=== PATIENT | male | born 1950 | race Caucasian/White ===

== ENCOUNTER 2018-06-20 11:55 | Outpatient (CLI) | payer MEDICARE ==
--- NOTE | 2018-06-20 13:50 | MRI ---
MRI LUMBAR SPINE: HISTORY: Spondylolisthesis lumbosacral with back pain. FINDINGS: Multiplanar, multisequence noncontrast-enhanced MRI images lumbar spine performed. RADIOGRPAHIC FINDINGS: Interosseous hemangioma is seen involving the L1 and L4 levels. The L4 lesion is so large that it in volves essentially the entire L4 vertebral body. T12-L1: Unremarkable. L1-2: Disk desiccation is seen. The central canal is patent. The neural foramen are patent. L2-3: Disk desiccation is seen. There is a broad-based disk bulge with bilateral facet hypertrophy. This results in mild central and lateral recess stenosis. Moderate left and mild right-sided neura l foraminal narrowing is seen predominantly due to facet hypertrophy. L3-4: Disk desiccation is seen. There is a broad-based disk bulge with bilateral facet and ligament um flavum hypertrophy resulting in mild central and lateral recess stenosis. Mild to moderate bilate ral neural foraminal narrowing is seen due to facet hypertrophy. L4-5: Disk desiccation is seen. There is a broad-based disk bulge. No significant degree of centra l stenosis is seen. Moderate left and mild right-sided neural foraminal narrowing is seen due to the broad-based disk bulge and mild facet hypertrophy. L5-S1: There is minimal anterolisthesis of L5 on S1 measuring approximately 3.4 mm. There is an are a of signal abnormality in the left L5 pars region compatible with left pars interarticularis defect. The right L5 pars appears to be intact. No significant degree of central stenosis is seen. The ne ural foramen are patent. IMPRESSION: Left-sided L5 pars defect. There is minimal anterolisthesis of L5 on S1. POS: [facility]
--- NOTE | 2018-06-21 07:49 | RAD ---
Lumbar spine 4 views: 06/20/2018 COMPARISON: None HISTORY: Spondylolisthesis of the lumbar spine, low back pain FINDINGS: Lumbar pedicles appear intact on frontal imaging. There is lateral osteophyte formation at multiple levels within the upper lumbar spine. On the neutral lateral examination there is mild anterolisthesis at the lumbosacral junction measurin g 5 mm. Assuming 5 lumbar type vertebral bodies, there is multilevel disc space narrowing with degenerative endplate change and anterior osteophyte formation at T12-L1, L1-2, and L2-3. On flexion imaging there is anterolisthesis at the lumbosacral junction measuring approximately 6 mm. On the extension imaging this anterolisthesis at the lumbosacral junction measures approximately 4 mm. IMPRESSION: Multilevel lumbar spine degenerative change.
== END 2018-06-20 11:56 | disposition home or self-care (01) ==
LOC: BICMRI 11:55
PROVIDERS: ATTEND Nurse Practitioner Family
DX: M43.17 Spondylolisthesis, lumbosacral region (principal); M47.816 Spondylosis without myelopathy or radiculopathy, lumbar region
CPT/HCPCS: 72110; 72148

== ENCOUNTER 2018-08-27 04:26 | Inpatient (IN) | payer MEDICARE ==
[2018-08-27 05:08] LABS: #Basophils 0.1 thou/uL (0.0-0.2); #Eosinphils 0.3 thou/uL (0.0-0.7); #Lymphocytes 1.3 thou/uL (1.20-3.40); #Monocytes 0.5 thou/uL (0.11-0.59); #Neutrophils 5.4 thou/uL (1.40-6.50); %Basophils 0.9 % (0.0-1.0); %Lymphocytes 16.7 % (21.0-51.0); %Monocytes 6.8 % (0.0-10.0); %Neutrophils 71.6 % (42.0-75.0); Hemoglobin 13.1 g/dL (14.0-18.0); Mean Corpuscular Hemoglobin 30.4 pg (27.0-31.0); Mean Platelet Volume 7.3 fL (7.4-10.4); Platelet Count 203 thou/uL (130-400); RBC Distribution Width 14.3 % (11.5-14.5); White Blood Cell (WBC) Count 7.5 thou/uL (4.8-10.8)
[2018-08-27 05:24] LABS: ALT (SGPT) Less than 7 U/L (8-55); AST (SGOT) 8 U/L (5-34); Albumin 4.1 g/dL (3.4-4.8); Alkaline Phosphatase 66 U/L (40-150); Anion Gap 11 mmol/L (10-20); BUN (Urea Nitrogen) 23 mg/dL (8.4-25.7); Bilirubin, Total 0.8 mg/dL (0.2-1.2); Calc. Creatinine Clearance 0 mL/min (70-130); Carbon Dioxide 27 mmol/L (23-31); Chloride 105 mmol/L (98-107); Estimated GFR-MDRD 41; Globulin 3.4 g/dL (2.4-3.5); Glucose 145 mg/dL (80-115); Potassium 3.8 mmol/L (3.5-5.1); Protein, Total 7.5 g/dL (5.8-8.1); Sodium 139 mmol/L (136-145)
[2018-08-27] MEDS ORDERED: Ondansetron ODT 4 MG TAB PO PRN (05:54)
[2018-08-27] MEDS ORDERED: Calcium Carbonate 500 MG ChewTAB PO PRN (05:54)
[2018-08-27] MEDS ORDERED: Acetaminophen 325 MG TAB PO PRN (05:54)
[2018-08-27] MEDS ORDERED: Senokot S 8.6-50 MG TAB PO PRN (05:54)
--- NOTE | 2018-08-27 05:59 | PDOC.FPRHP ---
- History of Present Illness Chief Complaint: Accidental Hydralazine Overdose History of Present Illness: Mr. Gutierrez is a pleasant 68yoM who presents to the ER this morning after accidentally taking 12-13 hydralazine 100mg tablets this morning. He states that his usually sets his daily medications out for him and that this morning around 3:15am when he woke to take them he just grabbed the bottle on the cabinet and swallowed the whole thing, not realizing that it was not his daily mix of medications. Shortly after taking the medication he realized his mistake and they immediately came to the emergency department. He denies nausea, vomiting, light headedness, syncope, or any other symptoms. He has a PMH of stroke with left sided weakness, CKD, gout, back pain, primary hyperparathyroidism. - Allergies/Adverse Reactions Allergies Allergy/AdvReac Type Severity Reaction Status Date / Time No Known Drug Allergies Allergy Verified 02/16/14 23:10 - Home Medications Medication Instructions Recorded Confirmed Type Amlodipine [Norvasc] 10 mg PO DAILY #0 tab 03/20/14 08/27/18 Rx Carvedilol [Coreg] 3.125 mg PO BID-WM #0 tab 03/20/14 08/27/18 Rx Pantoprazole [Protonix] 40 mg PO DAILY #0 tab 03/20/14 08/27/18 Rx hydrALAZINE [Apresoline] 100 mg PO 0600,1400,2200 #0 tab 03/20/14 08/27/18 Rx Doxazosin Mesylate 1 mg PO DAILY 08/21/14 08/27/18 History Celecoxib 200 mg PO BID #0 capsule 08/22/14 08/27/18 Rx - History PMHx: Stroke Chronic back pain Gout Hyperparathyroidism HTN CKD PSHx: None FHx: Non-contributory Social: Uses chewing tobacco. Non-drinker. - Review of Systems General: denies: fever/chills, weight/appetite/sleep changes, night sweats Eyes: denies: eye pain, vision changes ENT: denies: nasal congestion Respiratory: denies: cough, congestion Cardiovascular: denies: chest pain, palpitation, edema Gastrointestinal: denies: nausea, vomiting Skin: denies: rashes Musculoskeletal: denies: pain Neurological: denies: numbness, syncope, seizure, weakness (other than history of weakness from stroke) - Vital signs BP: [] HR: [] RR: [] Tmax: [] Pox: []% on [] Wt: [] - Physical Exam Constitutional: NAD, awake, alert and oriented HEENT: normocephalic and atraumatic Neck: supple, FROM Chest: no-tender to palpation Heart: RRR, normal S1/S2, no murmurs/rubs/gallops, pulses present, no edema Lungs: CTAB, no respiratory distress, no rales/rhonchi, no wheezing, no retractions Abdomen: soft, non-tender, bowel sounds present Neurological: no focal deficit Skin: no rash/lesions Heme/Lymphatic: no unusual bruising or bleeding Psychiatric: normal mood and affect FMR H&P: Results - Labs Result Diagrams: 08/27/18 04:54 08/27/18 04:54 Lab results: WBC 7.5 thou/uL (4.8-10.8) 08/27/18 04:54 Hgb 13.1 g/dL (14.0-18.0) L 08/27/18 04:54 Hct 40.8 % (42.0-52.0) L 08/27/18 04:54 MCV 95.0 fL (78.0-98.0) 08/27/18 04:54 Plt Count 203 thou/uL (130-400) 08/27/18 04:54 Neutrophils % 71.6 % (42.0-75.0) 08/27/18 04:54 Sodium 139 mmol/L (136-145) 08/27/18 04:54 Potassium 3.8 mmol/L (3.5-5.1) 08/27/18 04:54 Chloride 105 mmol/L (98-107) 08/27/18 04:54 Carbon Dioxide 27 mmol/L (23-31) 08/27/18 04:54 BUN 23 mg/dL (8.4-25.7) 08/27/18 04:54 Creatinine 1.67 mg/dL (0.7-1.3) H 08/27/18 04:54 Glucose 145 mg/dL (80-115) H 08/27/18 04:54 Calcium 11.0 mg/dL (7.8-10.44) H 08/27/18 04:54 Total Bilirubin 0.8 mg/dL (0.2-1.2) 08/27/18 04:54 AST 8 U/L (5-34) 08/27/18 04:54 ALT Less than 7 U/L (8-55) L 08/27/18 04:54 Alkaline Phosphatase 66 U/L (40-150) 08/27/18 04:54 Serum Total Protein 7.5 g/dL (5.8-8.1) 08/27/18 04:54 Albumin 4.1 g/dL (3.4-4.8) 08/27/18 04:54 - EKG Interpretation EKG: "12 lead EKG shows, sinus arrhythmia, 65 BPM, Conduction with complete right bundle branch block, left anterior fascicular block, bifascicular block, first degree AV block, ST segments normal, T waves normal, Ray normal" FMR H&P: A/P - Problem List (1) Accidental overdose Current Visit: Yes Status: Acute Code(s): T50.901A - POISONING BY UNSP DRUG/ MEDS/BIOL SUBST, ACCIDENTAL, INIT (2) Primary hyperparathyroidism Current Visit: Yes Status: Chronic Code(s): E21.0 - PRIMARY HYPERPARATHYROIDISM (3) Hypercalcemia Current Visit: No Status: Chronic Code(s): E83.52 - HYPERCALCEMIA (4) Chronic kidney disease, stage 3 Current Visit: No Status: Chronic (5) HTN (hypertension) Current Visit: No Status: Chronic Code(s): I10 - ESSENTIAL (PRIMARY) HYPERTENSION - Plan 1. Accidental Hydralazine Overdose (approx 1300mg) - Most recent BP was 140/85 with pulse of 68 BPM, asymptomatic. - Poison control reference number #[id number]. ([phone]) - Following poison control recommendations - monitor BP, HR, telemetry, electrolytes. If hypotensive, give fluids. Symptoms should present within 6 hours of ingestion. - Admit to [facility] for observation - Hold all home BP medications (hydralazine, amlodipine, and carvedilol) 2. Hypercalcemia 2/2 primary hyperparathyroidism - stable, at baseline 3. CKD stage III - stable, at baseline 4. Chronic normocytic anemia - stable, at baseline FMR H&P: Upper Level - Pertinent history 68 yo M here following accidental ingestion of apprx 1300 mg of hydralazine. His typically sorts his meds for him and he apparently took the wrong bottle of pills in the dark this morning. He immediately presented to the ED where he has been monitored since. Poison control was contacted who recommends monitoring BP for at least 6 hours. Patient has been hypertensive since being monitored with no hypotensive BPs. See video editing internship portion for full ROS, PE, labs, and vitals ROS General denies fever or chills HEENT denies changes in vision or dizziness CV denies palpitations Resp denies SOB or cough GI denies n/v - Pertinent findings PE General alert and oriented x4 HEENT NCAT CV RRR no murmur Resp CTA b/l Abd non tender, no distension Neuro slight L facial droop and left extremity weakness - Plan Date/Time: 08/27/18 0554 I, Nolan Urban DO, have evaluated this patient and agree with findings/plan as outlined by video editing internship resident. Pertinent changes/additions are listed here. 1. Accidental hydralazine OD - blood pressures currently stable. Monitor in IMCU - will also monitor BMP per poison control recommendation - give IVF and pressers if needed - can consider dc home this afternoon 2. HTN - hold home BP meds 3. Hx of CVA - pt is currently at baseline 4. CKD - at baseline 5. normocytic anemia - at baseline 6. Hyperparathyroidism - Ca stable and at baseline
[2018-08-27 08:02] VITALS: BMI 29.7
[2018-08-27] MEDS ORDERED: CeleCOXIB 100 MG CAP PO SCH (09:00)
[2018-08-27] MEDS ORDERED: Non-Formulary Item 1 EACH (Celecoxib [Celecoxib] 200 MG) PO SCH (09:00)
--- NOTE | 2018-08-27 12:29 | HP ---
HISTORY OF PRESENT ILLNESS: I have examined the patient. I have read the history and physical of Dr. Rocio Choi, and discussed the case with her. I agree with her assessment and plan. Briefly, Mr. Gutierrez is a 68-year-old white male, who accidentally took about 12 hydralazine 100 mg tablets this morning. He had woken at 3 a.m., which he states is not unusual for him. He decided to take his morning medications and accidentally grabbed a bottle of hydralazine. When he realized what he had done shortly thereafter he notified his and brought him promptly to the ER. PHYSICAL EXAMINATION: GENERAL: He is awake and alert. He is in no distress. VITAL SIGNS: His vital signs are stable. EAR, NOSE, AND THROAT: No erythema or exudate. NECK: Supple. CARDIAC: Heart rhythm is regular without gallop or murmur. LUNGS: Clear. No rales or wheezes. ABDOMEN: Flat, benign, and soft. No guarding, rebound, or rigidity. EXTREMITIES: No edema. NEUROLOGIC: No focal deficits. LABORATORY DATA: CBC; white count 7500, hemoglobin 13.1, and hematocrit 40.8. Chemistries; sodium is 139, potassium 3.8, chloride 105, bicarb 27, BUN 23, creatinine 1.67, and glucose is 145. ASSESSMENT: Accidental overdose of hydralazine. COMMENT: Poison Control was contacted. They recommended observation for at least 6 hours. They stated that if the blood pressure dropped, he should be treated with fluid boluses. PLAN: We will admit to MICU. Observe. Fluid bolus boluses if he becomes hypotensive. Job ID: [id number]
[2018-08-27 12:46] LABS: Anion Gap 12 mmol/L (10-20); BUN (Urea Nitrogen) 20 mg/dL (8.4-25.7); Calc. Creatinine Clearance 59 mL/min (70-130); Carbon Dioxide 26 mmol/L (23-31); Chloride 104 mmol/L (98-107); Estimated GFR-MDRD 45; Glucose 123 mg/dL (80-115); Potassium 3.9 mmol/L (3.5-5.1); Sodium 138 mmol/L (136-145)
[2018-08-27] MEDS ORDERED: Gabapentin 300 MG CAP PO SCH (15:00)
[2018-08-27 15:50] VITALS: TEMP 98.6
--- NOTE | 2018-08-27 17:53 | CON ---
DATE OF CONSULTATION: 08/27/2018 SERVICE: Pulmonary Medicine. REASON FOR CONSULTATION: [facility] patient. HISTORY OF PRESENT ILLNESS: The patient is a 68-year-old white male with past medical history significant for hypertension. He takes hydralazine at home. He woke up in the middle of the night, had very high blood pressures. He accidentally took a couple extra dose of the hydralazine. Ultimately, he was brought to the Emergency Department because of this accidental ingestion. Poison Control was called. They recommended 6 hours of observation. The ingestion happened at roughly 0300 hours. PAST MEDICAL HISTORY: 1. Hypertension. 2. Chronic kidney disease. 3. Hyperparathyroidism. 4. Gout. 5. Chronic back pain. 6. History of stroke. PAST SURGICAL HISTORY: None. FAMILY HISTORY: Noncontributory. SOCIAL HISTORY: Negative for alcohol or illicit drug use. He uses chewing tobacco. He has no exposure to chemicals, dust, asbestos, or tuberculosis. ALLERGIES: NO KNOWN DRUG ALLERGIES. MEDICATIONS: List of his inpatient medications was reviewed. No specific updates were made at this time. REVIEW OF SYSTEMS: General, head, ears, eyes, nose, throat, cardiovascular, respiratory, GI, , musculoskeletal, neurologic, and skin are negative except as mentioned is the HPI. PHYSICAL EXAMINATION: VITAL SIGNS: Afebrile, pulse 76, blood pressure 139/81, respirations 24, and saturation 94% on room air. GENERAL: The patient is awake and alert, in no apparent distress. LUNGS: Wonderful air entry. There is no prolonged expiratory phase or wheezing present. HEART: Normal rate. Regular. ABDOMEN: Soft, nontender, and nondistended. Bowel sounds are positive. MUSCULOSKELETAL: No cyanosis or clubbing. No pitting in the bilateral lower extremities. NEUROLOGIC: Grossly nonfocal. LABORATORY DATA: Comprehensive metabolic profile is completely unremarkable. He does have a chronically elevated calcium, which is close to baseline, and an elevated creatinine, which is at baseline. ASSESSMENT: 1. Overdose of hydralazine. 2. Hypertension. 3. Chronic kidney disease. 4. Hypercalcemia secondary to hyperparathyroidism. DISCUSSION AND PLAN: The patient's family indicates that the patient is currently at baseline from a mentation standpoint. We have already gone by 2 half-lifes on this drug. As such, the likelihood that he is going to have a negative response at this point is quite low. As such, he can be transitioned to the telemetry unit or discharged home based on Primary Services preference. Of note, I did ask for the patient's family to step out, had a brief conversation with the patient. He affirms on at least three separate occasions that this was an accidental overdose and no way intentional. He suggesting me that there is no possibility this would happen again accidentally. If he leaves the IMCU, he will have no further requirements for Pulmonary/Critical Care opinion, then I will sign off. Please call with additional questions or concerns through time. 70 minutes have been devoted to this patient in various activities. I personally reviewed all imaging studies and laboratory data noted within this document. For fifty percent of this time, I was interacting with the patient at the bedside or coordinating care with the care team. For the remainder of the time I was immediately available to the patient in the hospital unit. Job ID: [id number] MTDD
--- NOTE | 2018-08-28 09:39 | DIS ---
DATE OF ADMISSION: 08/27/2018 DATE OF DISCHARGE: 08/27/2018 ADMITTING ATTENDING: Ayush Gaspar MD DISCHARGE ATTENDING: Ayush Gaspar MD RESIDENT: Saumya Rey MD. PROCEDURES: None. CONSULTS: Pulmonology/Critical Care, Dr. Maulik Guidry. PRIMARY DIAGNOSIS: Accidental hydralazine overdose. SECONDARY DIAGNOSES: 1. Hypertension. 2. History of cerebrovascular accident. 3. Chronic kidney disease, stage 3. 4. Normocytic anemia. 5. Hyperparathyroidism. DISCHARGE MEDICATIONS: 1. Carvedilol 3.125 mg p.o. b.i.d. with meals. 2. Protonix 40 mg p.o. daily. 3. Norvasc 10 mg p.o. daily. 4. Hydralazine 100 mg p.o. t.i.d. 5. Doxazosin 1 mg p.o. daily. 6. Gabapentin 300 mg p.o. t.i.d. 7. Tylenol 650 p.o. q.4 p.r.n. 8. Tums 1000 mg p.o. q.4 p.r.n. DISCONTINUED MEDICATIONS: Celecoxib 200 mg p.o. b.i.d. HOSPITAL COURSE: The patient is a 68-year-old gentleman with a past medical history significant for hypertension, CKD stage 3, and history of prior CVA, who presented to the emergency department after reportedly accidentally taking approximately 1200 to 1300 mg of his home prescription of hydralazine. Per the patient and his , his daily medications are normally set out for him in individual prescription bottles. The patient awoke around 3:15 am and was unable to go back to sleep. He therefore decided to take his regular morning meds and reached in the medicine cabinet, grabbing the first pill bottle available and ingested all the pills in that bottle. He then walked into the kitchen and saw the pill bottle he was supposed to take for that day on the counter and realized that he had ingested the wrong pills. He promptly informed his who brought him to the ED for further evaluation. On presentation to the ED, the patient was actually hypertensive with a blood pressure of 152/68 and all other vitals were within normal limits. Initial lab work including CBC and CMP were all within the patient's baseline range and were otherwise within normal limits. Poison Control was notified and recommended observing the patient closely for a minimum of 6 hours to ensure no drastic metabolic or hemodynamic changes occurred. The patient had a repeat BMP obtained around noon which was once again within the patient's baseline limits. His blood pressure actually became higher before reaching its lowest level of 117/74 at approximately 1400. Therefore, after close monitoring for approximately 12 to 13 hours and after being cleared by the critical care physician, Dr. Maulik Guidry, he was discharged home with close instructions for close follow-up with his PCP. DISPOSITION: Stable. DISCHARGE INSTRUCTIONS: 1. Location: Home. 2. Diet: Heart healthy diet. 3. Activity: As tolerated. No restrictions. 4. Followup: The patient was instructed to follow up with his primary care provider within 1 week of discharge. Job ID: [id number] MTDD
[2018-08-28] MEDS ORDERED: Prevnar 13-Val Conj/PF 0.5 ML SYRINGE IM ONE (10:00)
== END 2018-08-27 16:43 | disposition home or self-care (01) | DRG 918 ==
LOC: ERS 04:26 → ERHOLD 05:20 → IMCU/EMU 08:01
PROVIDERS: ADMIT Family Medicine; ATTEND Family Medicine
DX: T46.5X1A Poisoning by other antihypertensive drugs, accidental (unintentional), initial encounter (principal); I69.954 Hemiplegia and hemiparesis following unspecified cerebrovascular disease affecting left non-dominant side; M10.9 Gout, unspecified; E21.0 Primary hyperparathyroidism; I12.9 Hypertensive chronic kidney disease with stage 1 through stage 4 chronic kidney disease, or unspecified chronic kidney disease; N18.3 Chronic kidney disease, stage 3 (moderate); D63.1 Anemia in chronic kidney disease; Z79.899 Other long term (current) drug therapy
CPT/HCPCS: 36415; 36416; 80053; 85025; 93005

== ENCOUNTER 2019-02-20 10:39 | Outpatient (CLI) | payer MEDICARE | END 2019-02-20 10:40 | disposition home or self-care (01) | PROVIDERS: ATTEND Student in an Organized Health Care Education/Training Program | DX: I69.391 Dysphagia following cerebral infarction (principal); R63.3 Feeding difficulties | CPT/HCPCS: 74230 ==

== ENCOUNTER 2019-11-12 08:19 | Outpatient (CLI) | payer MEDICARE ==
--- NOTE | 2019-11-12 13:15 | NM ---
Exam: Nuclear medicine parathyroid scan with planar and SPECT imaging HISTORY: Hypercalcemia TECHNIQUE: Patient was administered 25.1 L of technetium 99m sestamibi intravenously Immediate, 1 hour and 2 hour planar imaging was performed. SPECT imaging was also performed the axial , sagittal and coronal plane FINDINGS: Planar images demonstrate retention of radiotracer in the right aspect of the neck. There is correspo nding increased radiotracer activity in the right neck on the SPECT images. This area of activity just inferior to the right thyroid lobe and an approximation of the right tracheoesophageal groove. IMPRESSION: Right parathyroid adenoma as described above.
== END 2019-11-12 08:20 | disposition home or self-care (01) ==
LOC: NM 08:19
PROVIDERS: ATTEND Student in an Organized Health Care Education/Training Program
DX: E05.90 Thyrotoxicosis, unspecified without thyrotoxic crisis or storm (principal); E83.52 Hypercalcemia; D35.1 Benign neoplasm of parathyroid gland
CPT/HCPCS: 78072; A9500

== ENCOUNTER 2019-11-27 07:29 | Outpatient (CLI) | payer MEDICARE, OTHER ==
[2019-11-27 11:28] LABS: Hemoglobin 13.2 g/dL (14.0-18.0)
[2019-11-27 12:05] LABS: Anion Gap 13 mmol/L (10-20); BUN (Urea Nitrogen) 20 mg/dL (8.4-25.7); Calc. Creatinine Clearance 0 mL/min (70-130); Calcium 10.7 mg/dL (7.8-10.44); Carbon Dioxide 24 mmol/L (23-31); Chloride 108 mmol/L (98-107); Estimated GFR-MDRD 49; Glucose 121 mg/dL (80-115); Potassium 4.7 mmol/L (3.5-5.1); Sodium 140 mmol/L (136-145)
[2019-11-27 17:32] LABS: SARS-CoV-2 MS2 Positive; SARS-CoV-2 N Gene Negative; SARS-CoV-2 S Gene Negative; SARS-CoV-2 by NAA Not Detected (NotDetected); SARS-CoV-2 orf1ab Negative
--- NOTE | 2019-11-27 18:09 | EKG ---
Test Reason : Blood Pressure : / mmHG Vent. Rate : 056 BPM Atrial Rate : 056 BPM P-R Int : 280 ms QRS Dur : 146 ms QT Int : 438 ms P-R-T Axes : 064 -71 044 degrees QTc Int : 422 ms Right bundle branch block sinus bradycardia with Mobitz I block Left anterior fascicular block Bifascicular block Septal infarct , age undetermined Abnormal ECG No previous ECGs available Confirmed by DR. Marcela LYON (3) on 11/27/2019 6:08:51 PM Referred By: FERMIN Confirmed By:DR. Marcela LYON
== END 2019-11-27 07:30 | disposition home or self-care (01) ==
LOC: LABBT 07:29
PROVIDERS: ATTEND Student in an Organized Health Care Education/Training Program
DX: Z01.818 Encounter for other preprocedural examination (principal); E83.52 Hypercalcemia; E05.90 Thyrotoxicosis, unspecified without thyrotoxic crisis or storm; D35.1 Benign neoplasm of parathyroid gland; N18.9 Chronic kidney disease, unspecified; Z86.73 Personal history of transient ischemic attack (TIA), and cerebral infarction without residual deficits; Z20.828 Contact with and (suspected) exposure to other viral communicable diseases
CPT/HCPCS: 80048; 85014; 85018; 93005; U0003; 87635; 93010

== ENCOUNTER 2019-12-11 07:46 | Outpatient (CLI) | payer MEDICARE, OTHER ==
[2019-12-11 11:31] LABS: Hemoglobin 12.8 g/dL (14.0-18.0)
[2019-12-11 11:48] LABS: Anion Gap 12 mmol/L (10-20); BUN (Urea Nitrogen) 19 mg/dL (8.4-25.7); Calc. Creatinine Clearance 0 mL/min (70-130); Calcium 10.2 mg/dL (7.8-10.44); Carbon Dioxide 24 mmol/L (23-31); Chloride 106 mmol/L (98-107); Estimated GFR-MDRD 49; Glucose 115 mg/dL (80-115); Potassium 4.7 mmol/L (3.5-5.1); Sodium 137 mmol/L (136-145)
[2019-12-11 17:07] LABS: SARS-CoV-2 MS2 Positive; SARS-CoV-2 N Gene Negative; SARS-CoV-2 S Gene Negative; SARS-CoV-2 by NAA Not Detected (NotDetected); SARS-CoV-2 orf1ab Negative
--- NOTE | 2019-12-14 12:02 | EKG ---
Test Reason : ER Blood Pressure : / mmHG Vent. Rate : 059 BPM Atrial Rate : 059 BPM P-R Int : 264 ms QRS Dur : 150 ms QT Int : 434 ms P-R-T Axes : 068 -76 044 degrees QTc Int : 429 ms Sinus bradycardia with 1st degree A-V block with Premature atrial complexes in a pattern of bigeminy Right bundle branch block Left anterior fascicular block Bifascicular block Septal infarct (cited on or before 27-NOV-2019) Possible Lateral infarct (cited on or before 27-NOV-2019) Abnormal ECG Confirmed by GARO OBREGON (2) on 12/14/2019 12:01:35 PM Referred By: FERMIN Confirmed By:GARO OBREGON
== END 2019-12-11 07:47 | disposition home or self-care (01) ==
LOC: LABBT 07:46
PROVIDERS: ATTEND Student in an Organized Health Care Education/Training Program
DX: Z01.818 Encounter for other preprocedural examination (principal); E83.52 Hypercalcemia; E05.90 Thyrotoxicosis, unspecified without thyrotoxic crisis or storm; N18.9 Chronic kidney disease, unspecified; D35.1 Benign neoplasm of parathyroid gland; Z86.73 Personal history of transient ischemic attack (TIA), and cerebral infarction without residual deficits; Z20.828 Contact with and (suspected) exposure to other viral communicable diseases
CPT/HCPCS: 80048; 85014; 85018; 93005; U0003; 87635; 93010

== ENCOUNTER 2019-12-16 06:26 | Day surgery (SDC) | payer MEDICARE ==
[2019-12-15 11:45] VITALS: BMI 29.2
[2019-12-16] MEDS ORDERED: Fentanyl 250 MCG/5 ML VIAL ONE ×2 (08:47→08:48)
[2019-12-16] MEDS ORDERED: Lidocaine 1% w/Epinephrine 1:100K 20 ML VIAL ONE (08:52)
[2019-12-16] MEDS ORDERED: Bacitracin Zinc Ointment 30 gm TUBE ONE (10:52)
[2019-12-16] MEDS ORDERED: Lidocaine 1% PF 5 ML VIAL ONE (12:20)
[2019-12-16] MEDS ORDERED: PROPOFOL 200 MG/20 ML VIAL ONE (12:20)
[2019-12-16] MEDS ORDERED: EPHEDRINE 25 MG/5 ML SYRINGE ONE (12:20)
[2019-12-16] MEDS ORDERED: Ondansetron PF 4 MG/2 ML Vial ONE (12:20)
[2019-12-16] MEDS ORDERED: Glycopyrrolate 0.2 MG/ML 5 ML SYRINGE ONE (12:20)
[2019-12-16] MEDS ORDERED: Rocuronium Bromide 10 MG/ML (10ML VIAL) ONE (12:20)
[2019-12-16] MEDS ORDERED: Dexamethasone 20 MG/5 ML VIAL ONE (12:20)
--- NOTE | 2019-12-17 14:02 | OP ---
DATE OF PROCEDURE: 12/16/2019 PREOPERATIVE DIAGNOSES: Hypercalcemia and hyperparathyroidism with significant constipation. POSTOPERATIVE DIAGNOSES: Hypercalcemia and hyperparathyroidism with significant constipation. PROCEDURES PERFORMED: Right parathyroidectomy and exploration of the parathyroid glands. PERMIT: Procedures, benefits, risks including those of bleeding, infection, injury from anesthesia, allergic reaction, damage to recurrent laryngeal nerve, hoarseness, hypocalcemia, and scarring necessitating revision and repair and alternatives were reviewed with the patient and family, who expressed understanding of the information. Consent form was signed and witnessed and a paper copy of the consent form is available to review in the paper chart. INDICATIONS: This is a 69-year-old male patient presenting to the clinic with hypercalcemia and hyperparathyroidism with a nuclear medicine scan identifying a right posterior to the superior thyroid lobe enlarged parathyroid adenoma necessitating surgical intervention. The patient is now brought to the operating room for treatment. ASSISTANTS: None. FINDINGS: Right large parathyroid gland 1457 mg in weight, manipulation PTH 859, 10 minutes post excision PTH 200, postanesthesia care unit PTH 21. DESCRIPTION OF OPERATION: The patient was brought to the operating room and laid supine on the operating room table. General endotracheal anesthesia was administered and the patient was prepped and draped in sterile fashion. The patient's airway landmarks were identified including the thyroid notch and the cricoid as well as the sternal notch, and an incision over the parathyroid adenoma was marked and 1% lidocaine with 1:100,000 epinephrine was injected in the incision line, roughly 3 mL. An incision was made in the anterior neck skin over the parathyroid adenoma in a natural skin crease with a 15 blade scalpel excising the epidermis and dermis into the subcutaneous tissue. After this was complete, Bovie electrocautery was used on a setting of 15 to incise the subcutaneous tissue down to the platysma. The platysma was then transected and then Sydni rakes were used to elevate the superior skin flap and a subplatysmal flap was elevated up to the thyroid notch and then the same procedure was carried inferiorly with elevation of the skin flap in a platysmal plane down to the clavicles. At this point, the sternocleidomastoid and lateral border of the strap muscles were identified and blunt dissection using a DeBakey and tonsils with the help of bipolar cautery was used to separate the fascial tissue between the musculature and identified the carotid artery. After the carotid artery was identified, dissection was carried medially to identify the right superior and inferior lobe of the thyroid. After the thyroid was identified, a small superficial plane was made between the musculature and the thyroid. An [place] retractor was placed in that area and the thyroid was retracted to the left, exposing the right thyroid lateral border as well as the tracheoesophageal groove. Blunt dissection with a Kitner was used to identify large mass, which appeared to be parathyroid adenoma. The mass was carefully dissected using blunt dissection with Kitner, as well as hemostat using bipolar cautery to separate fascial tissue. The small vasculature was then suture-ligated with 3-0 silk suture as well as small hemoclips. The parathyroid was then removed and the right recurrent laryngeal nerve was then found to be intact and deep and medial to the parathyroid tissue, small section of the parathyroid tissue was sent for frozen section which confirmed hyperparathyroid tissue. At the time of dissection of parathyroid, a manipulation PTH was drawn from an arterial line which showed greater than 800 PTH. After the parathyroid was removed, approximately 10 to 15 minutes passed and another PTH sample was drawn from the arterial line and was found to be roughly 200, showing greater than 50% drop in parathyroid hormone. After this was completed, the neck was then irrigated and suctioned and hemostasis was achieved with suture ligation as well as bipolar cautery. A Valsalva was performed and no bleeding was identified. A small amount of Avitene was placed in the next phase. Thyroid and strap muscles were placed, as well as the sternocleidomastoid. A layered closure was achieved with deep 4-0 Vicryl sutures approximating the platysma and then deep subcutaneous sutures placed as well as a running continuous 5-0 prolene suture to close and reapproximate the skin. The patient was turned back to anesthesia for emergence and there were no complications. Job ID: [id number] [facility]
== END 2019-12-16 15:25 | disposition home or self-care (01) ==
LOC: SDC 06:26
PROVIDERS: ATTEND Student in an Organized Health Care Education/Training Program
PROC: 0GTN0ZZ Resection of Right Inferior Parathyroid Gland, Open Approach (ICD-10-PCS; principal; 2019-12-16)
PROC: 0GTL0ZZ Resection of Right Superior Parathyroid Gland, Open Approach (ICD-10-PCS; 2019-12-16)
DX: D35.1 Benign neoplasm of parathyroid gland (principal); E83.52 Hypercalcemia; K59.00 Constipation, unspecified; E05.90 Thyrotoxicosis, unspecified without thyrotoxic crisis or storm; I12.9 Hypertensive chronic kidney disease with stage 1 through stage 4 chronic kidney disease, or unspecified chronic kidney disease; N18.9 Chronic kidney disease, unspecified; Z86.73 Personal history of transient ischemic attack (TIA), and cerebral infarction without residual deficits; Z79.899 Other long term (current) drug therapy
CPT/HCPCS: 36415; 82310; 83970; 88305; 88331; 88334; J1100; J2405; J2704; J3010

== ENCOUNTER 2019-12-18 11:32 | Emergency (ER) | payer MEDICARE ==
[~2019-12-18 11:32] MED LIST: Atropine Sulfate 1 mg/10 ml Syringe ONE; Calcium Chloride 1 GM/10 ML Abboject SYRINGE ONE; EPINEPHrine 1 MG/10 ML Abboject SYRINGE ONE; EPINEPHrine 1 MG/ML AMP ONE; Sodium Bicarb 50 MEQ/50 ML Abboject 8.4% SYRINGE ONE
[2019-12-18] MEDS ORDERED: Sodium Bicarb 50 MEQ/50 ML Abboject 8.4% SYRINGE ONE (11:54)
[2019-12-18] MEDS ORDERED: EPINEPHrine 1 MG/10 ML Abboject SYRINGE ONE (12:01)
== END 2019-12-18 12:12 | disposition expired ==
LOC: ERS 11:32
DX: I46.9 Cardiac arrest, cause unspecified (principal)
CPT/HCPCS: 92950; J0171; J0461